=== PATIENT | male | born 1995 | race Caucasian/White ===

== ENCOUNTER 2022-03-21 17:51 | Emergency (ER) | payer SELFPAY ==
[2022-03-21 18:02] VITALS: BP 141/87; PULSE 102; RESP 16; TEMP 37.2; O2SAT 99
--- NOTE | 2022-03-21 18:07 | XRR_ITS ---
PROCEDURE INFORMATION: Exam: XR Left Ankle Exam date and time: 03/21/2022 6:13 PM Age: 26 years old Clinical indication: Pain; Ankle; Left; Additional info: Injury TECHNIQUE: Imaging protocol: Radiologic exam of the Left ankle. Views: 3 or more views. COMPARISON: No relevant prior studies available. FINDINGS: Bones/joints: The alignment of the joints is anatomic and the ankle mortise is maintained. There is no evidence of acute fracture. Soft tissues: There is soft tissue swelling adjacent to the lateral malleolus. No radiopaque foreign body is seen. XR/XR ankle LT min 3V* [id number] IMPRESSION: 1. Left ankle soft tissue swelling. 2. No acute fracture or dislocation.
[2022-03-21 18:22] VITALS: BP 141/87; PULSE 100; RESP 16; O2SAT 98
--- NOTE | 2022-03-21 18:24 | W.ED.EXTPRO ---
HPI - Extremity Problem General: Chief complaint: Extremity Injury, Lower Stated complaint: left ankle pain Time Seen by Provider: 03/21/22 18:22 History of Present Illness: 26-year-old male patient reports that he jumped into the pool and when he landed and touch bottom his ankle twisted. Since then patient noticed swelling and tenderness to the lateral part of the ankle. Pulses and sensation are intact. No obvious deformity. Associated symptoms: Deny chest pain or rash Review of Systems General: Reports: 10 or more systems reviewed and unremarkable except in HPI and below Card: Denies: chest pain Resp: Denies: dyspnea Musc: Reports: extremity pain and extremity swelling Skin/Breast: Denies: rash Physical Exam Const: COMMON NORMALS: alert HENMT: COMMON NORMALS: atraumatic HEAD & SCALP: atraumatic Neck/C-Spine: COMMON NORMALS: full ROM Resp: COMMON NORMALS: normal respiratory effort Cardio: COMMON NORMALS: regular rate RATE: regular rate Extremity: LEFT LOWER EXTREMITY: Yes ankle joint (Lateral ankle swelling, normal range of motion, distal cap refill) Left ankle: Yes inspection, Yes palpation, Yes ROM and Yes neurovascular exam Neuro: SENSORIUM/ORIENTATION: Yes alert Course Vital Signs: Vital signs: Vital Signs Temperature 99.0 F 03/21/22 18:02 Pulse Rate 100 03/21/22 18:22 Respiratory Rate 16 03/21/22 18:22 Blood Pressure 141/87 03/21/22 18:22 Pulse Oximetry 98 03/21/22 18:22 MDM - Extremity (Nontraumatic) Medical Decision Making Patient comes in today with complaints of injury to the left ankle. On exam patient has tenderness to the lateral left ankle with some obvious swelling. Pulses are intact. Prompt capillary refill is noted. Normal sensation. Differential diagnosis includes sprain, fracture, dislocation. X-rays noted no fracture or dislocation. Reviewed exam with patient with recommendations for treatment for sprain. Patient was placed in elastic bandage and put nonweightbearing with crutches. Patient was recommended to increase activity as tolerated. Patient was recommended to follow-up with primary care for persistent symptoms and repeat x-ray as swelling comes down if pain persists. Discharge Plan Discharge Patient Disposition: Home Clinical Impression: Ankle sprain Qualifiers: Encounter type: initial encounter Involved ligament of ankle: unspecified ligament Laterality: left Qualified Code(s): S93.402A - Sprain of unspecified ligament of left ankle, initial encounter Condition: Stable Discharge Orders: Discharge ED (Routine); Ordered 03/21/22 Ordered By: Gio Mak Discharge Diet: Usual diet Discharge Activity: Increase activity as tolerated Patient Instructions: Ankle Sprain (ED) Activity Restrictions/Additional Instructions: Activity as tolerated. Use ice and elevate to help with swelling. Use crutches until he can bear weight comfortably. Use an elastic bandage to help with swelling and comfort. Use acetaminophen and ibuprofen for pain. Follow-up with primary care for repeat evaluation if needed. Return to ER for new concerns. Stand Alone Forms: Work/School Release Coding Level of Care Code ED Leather Goods Maker for Martha Fwd Exam Detailed
[2022-03-21] MEDS: acetaminophen 500 mg Tablet 1000 MG PO (18:29)
== END 2022-03-21 18:36 | disposition home or self-care (01) ==
PROVIDERS: Emergency Provider Nurse Practitioner Family
DX: M25.572 Pain in left ankle and joints of left foot (principal); S93.402A Sprain of unspecified ligament of left ankle, initial encounter; X58.XXXA Exposure to other specified factors, initial encounter
CPT/HCPCS: 73610; 99283; E0114

== ENCOUNTER 2022-09-14 01:51 | Emergency (ER) | payer OTHER, SELFPAY ==
--- NOTE | 2022-09-14 01:53 | XRR_ITS ---
PROCEDURE INFORMATION: Exam: XR Left Shoulder Exam date and time: 09/14/2022 2:02 AM Age: 27 years old Clinical indication: Injury or trauma; Fall; Blunt trauma (contusions or hematomas); Left; Patient HX: Patient is in a sling. States he dislocated shoulder, passed out and it popped back in place. TECHNIQUE: Imaging protocol: Radiologic exam of the Left shoulder. Views: 2 or more views. COMPARISON: No relevant prior studies available. FINDINGS: Bones/joints: Normal. No fracture or dislocation noted. Soft tissues: Normal. XR/XR shoulder LT min 2V* [id number] IMPRESSION: No acute findings.
[2022-09-14 01:55] VITALS: BP 150/88; PULSE 80; RESP 18; TEMP 37.1; O2SAT 97; BMI 27.3
--- NOTE | 2022-09-14 02:35 | ED_ITS ---
HPI - Extremity Problem General: Chief complaint: Extremity Injury, Upper Stated complaint: left should dislocation Time Seen by Provider: 09/14/22 02:30 Source: patient and EMS Mode of arrival: EMS Limitations: no limitations History of Present Illness: 27-year-old male has had a history of multiple shoulder dislocations he states he is disquiet his left shoulder 9 times states he dislocated tonight called EMS in route here it spontaneously relocated he denies any pain currently he is able to move his arm denies any other injuries Associated symptoms: Deny chest pain, fever(s) or rash Review of Systems Const: Denies: fever(s), chills, body aches or change in appetite Eyes: Denies: blurry vision or eye discomfort ENMT: Denies: throat pain or dental pain Card: Denies: chest pain Resp: Denies: dyspnea GI: Denies: abdominal pain, nausea, vomiting or diarrhea : Denies: dysuria Musc: Reports: extremity pain Skin/Breast: Denies: rash Neuro: Denies: headache(s) Psych: Denies: depression Nikolas/Lymph: Denies: easy bruising All/Imm: Denies: urticaria PFSH ED PFSH: Medical History (Updated 09/14/22 @ 02:42 by Jo Loaiza MD) No pertinent past medical history Social History (Updated 09/14/22 @ 02:42 by Jo Loaiza MD) Substance/Drug Use: unknown Physical Exam Const: COMMON NORMALS: no acute distress and patient oriented x3 HENMT: COMMON NORMALS: normocephalic HEAD & SCALP: normocephalic Eye: COMMON NORMALS: conjunctivae normal CONJUNCTIVA: Yes conjunctivae normal Neck/C-Spine: COMMON NORMALS: supple Chest: COMMONS NORMALS: normal inspection of the chest Resp: COMMON NORMALS: normal respiratory effort Cardio: COMMON NORMALS: regular rate RATE: regular rate GI: INSPECTION: Yes normal to inspection Extremity: OTHER: Slight tenderness over left shoulder distal pulses intact no signs of dislocation at this time Neuro: COMMON NORMALS: patient oriented x3 Psych: COMMON NORMALS: mental status grossly normal Skin: COMMON NORMALS: no rashes or lesions noted GENERAL SKIN EXAM: no rashes or lesions noted Course Vital Signs: Vital signs: Vital Signs Temperature 98.7 F 09/14/22 01:55 Pulse Rate 80 09/14/22 01:55 Respiratory Rate 18 09/14/22 01:55 Blood Pressure 150/88 09/14/22 01:55 Pulse Oximetry 97 09/14/22 01:55 MDM - Extremity (Nontraumatic) Medical Decision Making Patient presents for shoulder dislocation that been relocated while he was in transport exam here is benign he is stable he is to follow-up with orthopedics Discharge Plan Discharge Patient Disposition: Home Clinical Impression: Dislocation of shoulder region Qualifiers: Encounter type: initial encounter Laterality: left Qualified Code(s): S43.005A - Unspecified dislocation of left shoulder joint, initial encounter Condition: Stable Discharge Orders: Discharge ED (Routine); Ordered 09/14/22 Ordered By: Jo Loaiza Referrals: Russell Pino MD [Physician] - 1-3 days Discharge Diet: Advance as tolerated Discharge Activity: Resume usual activity Patient Instructions: Shoulder Dislocation (ED) Coding Level of Care Code ED Superintendent Commissary for Martha Hodges
--- NOTE | 2022-09-16 11:49 | DCPLANNER ---
Addendum entered by Kimberli Summers 09/18/22 11:41: armored transport service manager received the following message from the ortho clinic regarding followup appointment: tried to call number in chart a couple times. Call drops/ no vm - will mail letter to contact our clinic to schedule with Dr. Pino armored transport service manager called phone number [phone] number is no longer in service armored transport service manager called phone number [phone], left a voicemail for patient to call ortho clinic to schedule a follow up appointment. Original Note: armored transport service manager had message to schedule a follow up appointment for patient with ortho. armored transport service manager sent patients information to the front office staff at ortho. Patients information will be printed and reviewed. Clinic will call patient with appointment information.
== END 2022-09-14 03:12 | disposition home or self-care (01) ==
PROVIDERS: Emergency Provider Emergency Medicine
DX: S43.005A Unspecified dislocation of left shoulder joint, initial encounter (principal); X58.XXXA Exposure to other specified factors, initial encounter
CPT/HCPCS: 73030; 99283

== ENCOUNTER 2022-11-04 11:43 | Emergency (ER) | payer SELFPAY ==
[2022-11-04 12:02] VITALS: BP 149/91; PULSE 100; RESP 16; TEMP 36.9; O2SAT 97
--- NOTE | 2022-11-04 12:19 | ED_ITS ---
HPI - Head Injury General: Chief complaint: Wound/Laceration Stated complaint: head lac Time Seen by Provider: 11/04/22 12:06 Source: patient Mode of arrival: ambulatory Limitations: no limitations History of Present Illness: Patient is a 27-year-old male who presents to ED today for evaluation of a scalp/facial laceration that he sustained just prior to arrival after some type of rafal like equipment struck him in the forehead. Tetanus is up-to-date. Bleeding is controlled. He is not on anticoagulation. He states he had a headache immediately afterwards but this has vastly improved. He has no other injuries or complaints at this time. Complaint: head injury Onset (ago): hour(s) Place: work Loss of Consciousness: no Location of injury: frontal Severity: mild Radiation: none Other Injuries: none Associated symptoms: Reports no associated symptoms; Deny confusion or neck pain Review of Systems Eyes: Denies: change in vision, blurry vision, photophobia, floaters or seeing flashes Musc: Denies: neck pain Neuro: Denies: headache(s), numbness in extremities, weakness in extremities, sensory changes, lack of coordination, difficulty walking, dizziness, confusion or difficulty communicating thoughts [facility] ED PFSH: Medical History No pertinent past medical history Physical Exam Const: COMMON NORMALS: no acute distress, average body habitus, patient oriented x3, no limitations, healthy appearing, alert and well nourished GENE RAL APPEARANCE: cooperative ORIENTATION/CONSCIOUSNESS: Yes awake, Yes oriented to person, Yes oriented to place and Yes oriented to time HENMT: COMMON NORMALS: normocephalic and Normal external nose present HEAD & SCALP: normal to inspection and normocephalic HEAD IMAGES: 1. superficial lacerations/abrasions present; bleeding controlled 2. FACE & SINUS: normal facial exam NOSE: Normal external nose present Eye: GENERAL EYE: appearance normal, both eyes and all related structures Neck/C-Spine: COMMON NORMALS: full ROM CERVICAL SPINE: No Cervical spine tenderness Neuro: KAREN COMA SCALE: document GCS findings [place] coma scale eye opening: Spontaneous Karen coma scale verbal response: Orientated [place] coma scale motor response: Obey commands Karen coma scale total score: 15 COMMON NORMALS: patient oriented x3, CN's II-XII intact bilaterally, moves all extremities, no focal motor deficits, no sensory deficits noted and gait normal SENSORIUM/ORIENTATION: Yes alert, Yes oriented to person, Yes oriented to place and Yes oriented to time Skin: NARRATIVE SKIN EXAM: forehead abrasions/lacerations Procedures Laceration Laceration 1: Site: face Size (cm): 2.0 Description: linear Depth: simple, single layer Pre-repair: wound explored and irrigated extensively Skin layer closed with: other (skin adhesive/glue) Course Vital Signs: Vital signs: Vital Signs Temperature 98.4 F 11/04/22 12:02 Pulse Rate 100 11/04/22 12:02 Respiratory Rate 16 11/04/22 12:02 Blood Pressure 149/91 11/04/22 12:02 Pulse Oximetry 97 11/04/22 12:02 Oxygen Delivery Me thod 11/04/22 12:02 MDM - Head Injury Medcial Decision Making Wounds were copiously irrigated. Patient requested that we closed wounds with skin adhesive/glue. No need for antibiotic therapy at this time. Tetanus up-to-date. Aced on history and physical exam there is no need for emergent CT imaging. Return ED precautions given. Wound care/action precautions discussed. Discharge Plan Discharge Patient Disposition: Home Clinical Impression: Forehead laceration Qualifiers: Encounter type: initial encounter Qualified Code(s): S01.81XA - Laceration without foreign body of other part of head, initial encounter Condition: Stable Discharge Orders: Discharge ED (Routine); Ordered 11/04/22 Ordered By: Cecelia Duarte Activity Restrictions/Additional Instructions: Keep wound/laceration clean with warm soap and water twice daily. Monitor for signs of infection such as redness, swelling, increased pain, or drainage. Please seek medical re-evaluation if these occur. If your wound was closed with Steri-Strips or glue/adhesive these will fall off within the next week or so. Coding Level of Care Code ED Billet Sawyer for Martha Hodges
== END 2022-11-04 13:25 | disposition home or self-care (01) ==
PROVIDERS: Emergency Provider Physician Assistant
DX: S01.81XA Laceration without foreign body of other part of head, initial encounter (principal); W22.8XXA Striking against or struck by other objects, initial encounter
CPT/HCPCS: 12011; 99282

== ENCOUNTER 2023-09-21 03:48 | Observation (INO) | payer SELFPAY ==
[2023-09-21 03:52] VITALS: BP 153/86; PULSE 114; RESP 18; TEMP 36.6; O2SAT 99; BMI 27.2
[2023-09-21 04:49] LABS: Basophils # 0.1 10^3/uL (0.0-0.1); Basophils % 0.4 %; Eosinophils # 0.3 10^3/uL (0.0-0.8); Eosinophils % 2.3 %; Hematocrit 48.8 % (37-53); Lymphocytes # 3.7 10^3/uL (0.8-4.8); Mean Corpuscular HGB Conc 31.6 g/dL (30-55); Mean Corpuscular Hemoglobin 29.2 pg (27-33); Mean Corpuscular Volume 92.4 fl (82-101); Mean Platelet Volume 8.9 fL (7.4-10.4); Monocytes # 1.1 10^3/uL (0.2-0.9); Monocytes % 7.6 %; Neutrophils # 8.92 10^3/uL (1.8-7.7); Neutrophils % 63.2 %; Nucleated Red Blood Cells % 0 %; Platelet Count 305 10^3/cmm (157-399); Red Blood Count 5.28 10^6/uL (3.85-5.65); White Blood Count 14.11 10^3/uL (3.29-11.43)
--- NOTE | 2023-09-21 05:09 | W.ED.PSYCHS ---
HPI - Psych General: Chief Complaint: Psychiatric Symptoms Stated Complaint: si Time Seen by Provider: 09/21/23 04:28 History of Present Illness: 28-year-old male who says he has never been admitted to the hospital for psychiatric reasons. He presents this morning via law enforcement. He had first walked in to triage on his own. He had called our neuropsychiatric facility at the hospital multiple times asking to be admitted last night. On entry to the emergency department, he admitted that he wanted to be seen for his mental health. He initially denied suicidal ideation, but when asked to give up his belongings, he told my nursing staff that he had a knife in his backpack, and threatened to use it if he felt the need. He then walked out of the ER. He was picked up by law enforcement down the road and brought back, as he had at that point made homicidal statement. He denies medical problems. He denies recent fever, vomiting or diarrhea. He notes substances on board to be marijuana, and potentially add Valium he took 24 hours ago. Review of Systems Const: Denies: fever(s), chills or body aches Eyes: Denies: change in vision Card: Denies: chest pain or palpitations Resp: Denies: dyspnea, productive cough, non-productive cough or wheezing GI: Denies: abdominal pain, nausea, vomiting, diarrhea or hematochezia Skin/Breast: Denies: rash Neuro: Denies: headache(s), weakness in extremities, dizziness or confusion [facility] ED PFSH: Medical History No pertinent past medical history Social History Substance/Drug Use: unknown Physical Exam Const: GENERAL APPEARANCE: cooperative; not ill appearing and not frail appearing ORIENTATION/CONSCIOUSNESS: Yes awake, Yes oriented to person, Yes oriented to place and Yes oriented to time OTHER: Agitated HENMT: COMMON NORMALS: normocephalic, atraumatic and Normal external nose present HEAD & SCALP: normocephalic and atraumatic FACE & SINUS: normal facial exam and face symmetric NOSE: Normal external nose present Eye: COMMON NORMALS: Equal, round and reactive pupils present and EOMs intact bilaterally PUPIL: Yes Equal, round and reactive pupils present Neck/C-Spine: GENERAL: Yes trachea midline Chest: CHEST: Yes Symmetrical chest wall rise Resp: COMMON NORMALS: normal respiratory effort, No retractions, No use of accessory muscles and clear to auscultation bilaterally AUSCULTATION: clear to auscultation bilaterally Cardio: COMMON NORMALS: regular rate and regular rhythm RATE: regular rate RHYTHM: regular rhythm GI: COMMON NORMALS: Normal to inspection, nondistended, normoactive bowel sounds present Extremity: COMMON NORMALS: no pedal edema Neuro: ÁNGEL COMA SCALE: document GCS findings Ángel coma scale eye opening: Spontaneous Ángel coma scale verbal response: Orientated [place] coma scale motor response: Obey commands Ángel coma scale total score: 15 SENSORIUM/ORIENTATION: Yes oriented to person, Yes oriented to place and Yes oriented to time SENSORY EXAM: Yes extremities (intact) Psych: COMMON NORMALS: speech normal APPEARANCE: Yes grossly normal ATTITUDE: Yes Guarded attititude/behavior present and Yes agitated SPEECH: Yes normal speech Skin: COMMON NORMALS: no rashes or lesions noted GENERAL SKIN EXAM: no rashes or lesions noted Course Vital Signs: Vital signs: Vital Signs Temperature 97.9 F 09/21/23 03:52 Pulse Rate 114 H 09/21/23 03:52 Respiratory Rate 16 09/21/23 05:34 Blood Pressure 153/86 09/21/23 03:52 Pulse Oximetry 99 09/21/23 03:52 Oxygen Delivery Me thod Room Air 09/21/23 03:52 [facility] - Psych Medical Decision Making He has not been violent. He arrived via law enforcement, was dressed out per protocol, and his belongings are locked away. Medically he appears stable. He is quite agitated but is handling his agitation. Because of the previous happenings this morning, he will require psychiatric evaluation. He is placed under 96-hour hold. Laboratory is pending. Spoke with psychiatry. Will proceed with admission. Lab Data 09/21/23 04:41 09/21/23 04:41 Laboratory Results WBC 14.11 10^3/uL (3.29-11.43) H 09/21/23 04:41 RBC 5.28 10^6/uL (3.85-5.65) 09/21/23 04:41 Hgb 15.40 g/dL (11.27-16.99) 09/21/23 04:41 Hct 48.8 % (37-53) 09/21/23 04:41 MCV 92.4 fl (82-101) 09/21/23 04:41 MCH 29.2 pg (27-33) 09/21/23 04:41 MCHC 31.6 g/dL (30-55) 09/21/23 04:41 RDW 14.0 % (12.1-15.1) 09/21/23 04:41 Plt Count 305 10^3/cmm (157-399) 09/21/23 04:41 MPV 8.9 fL (7.4-10.4) 09/21/23 04:41 Neut % (Auto) 63.2 % 09/21/23 04:41 Lymph % (Auto) 26.0 % 09/21/23 04:41 Gibson % (Auto) 7.6 % 09/21/23 04:41 Eos % (Auto) 2.3 % 09/21/23 04:41 Baso % (Auto) 0.4 % 09/21/23 04:41 Neut # (Auto) 8.92 10^3/uL (1.8-7.7) H 09/21/23 04:41 Lymph # (Auto) 3.7 10^3/uL (0.8-4.8) 09/21/23 04:41 Gibson # (Auto) 1.1 10^3/uL (0.2-0.9) H 09/21/23 04:41 Eos # (Auto) 0.3 10^3/uL (0.0-0.8) 09/21/23 04:41 Baso # (Auto) 0.1 10^3/uL (0.0-0.1) 09/21/23 04:41 Nucleated RBC % (auto) 0 % 09/21/23 04:41 Nucleated RBCs # 0.0 /100WBC 09/21/23 04:41 Sodium 141 mmol/L (136-145) 09/21/23 04:41 Potassium 3.7 mmol/L (3.5-5.1) 09/21/23 04:41 Chloride 105 mmol/L (98-107) 09/21/23 04:41 Carbon Dioxide 27 mmol/L (22-29) 09/21/23 04:41 Anion Gap 12.7 (5-19) 09/21/23 04:41 BUN 11 mg/dL (6-20) 09/21/23 04:41 Creatinine 0.7 mg/dL (0.7-1.2) 09/21/23 04:41 GFR Calculation 132.4 mL/min (90-130) H 09/21/23 04:41 Glucose 104 mg/dL (65-115) 09/21/23 04:41 Calculated Osmolality 292 mOsm/kg (285-295) 09/21/23 04:41 Calcium 9.3 mg/dL (8.5-10.5) 09/21/23 04:41 Total Bilirubin 0.2 mg/dL (0.15-1.2) 09/21/23 04:41 AST 32 U/L (0-40) 09/21/23 04:41 ALT 18 U/L (0-41) 09/21/23 04:41 Alkaline Phosphatase 82 U/L (40-130) 09/21/23 04:41 Total Protein 6.5 g/dL (6.6-8.7) L 09/21/23 04:41 Albumin 4.1 g/dL (3.5-5.2) 09/21/23 04:41 Globulin 2.4 g/dL (1.3-4.6) 09/21/23 04:41 Salicylates < 0.3 mg/dL (3-10) L 09/21/23 04:41 Acetaminophen < 5.0 ug/mL (10-30) L 09/21/23 04:41 Ethyl Alcohol < 10 mg/dL (0-10) 09/21/23 04:41 No radiology studies performed this visit Discharge Plan Discharge Patient Disposition: Admitted As Inpatient Clinical Impression: Homicidal ideation Condition: Stable Coding Level of Care Code ED Excellence Leader for Martha Hodges
[2023-09-21 05:12] LABS: Alanine Aminotransferase 18 U/L (0-41); Albumin Level 4.1 g/dL (3.5-5.2); Alkaline Phosphatase 82 U/L (40-130); Anion Gap 12.7 (5-19); Aspartate Amino Transferase 32 U/L (0-40); Blood Urea Nitrogen 11 mg/dL (6-20); Calcium 9.3 mg/dL (8.5-10.5); Carbon Dioxide 27 mmol/L (22-29); Chloride 105 mmol/L (98-107); Globulin 2.4 g/dL (1.3-4.6); Glomerular Filtration Rate 132.4 mL/min (90-130); Glucose 104 mg/dL (65-115); Osmolality Calculated 292 mOsm/kg (285-295); Potassium 3.7 mmol/L (3.5-5.1); Sodium 141 mmol/L (136-145); Total Bilirubin 0.2 mg/dL (0.15-1.2); Total Protein 6.5 g/dL (6.6-8.7)
[2023-09-21 05:18] LABS: Acetaminophen < 5.0 ug/mL (10-30); Alcohol Level < 10 mg/dL (0-10); Salicylate < 0.3 mg/dL (3-10)
[2023-09-21 05:34] VITALS: RESP 16
--- NOTE | 2023-09-21 05:52 | PC.NURSE ---
Patient Behavior At approximately 0200 this patient called the unit and spoke with EDISON asking several questions about what would happen to his belongings if he was admitted to the unit. She explained and he kept asking the same questions and also asking what he needed to bring. She tried to answer his questions several times but he did not seem to be grasping her answers. This designer writer then got on the phone with him and he stated he was homeless, walking around in [facility] because it is cold outside. He stated that he wanted to come to our unit directly and not go thru the ED. The process was explained to him several times and he stated his weapons officer naval activity and the crisis center told him he did not have to go thru the ED. He began to become agitated and stated this designer writer was lying to him and he just wanted answers. He stated he was not SI so he did not have to go to the ED. Offered that the patient call an ambulance or come into the ED or call the police department to inquire about warming shelters then he hung up. Called back shortly and nurse schneider re-iterated the same information previously given by staff. He became verbally abusive and was told that was unacceptable behavior and he hung up. Nurse schneider called him back with snf information and he stated to him that he was on the other line reporting the nurse schneider to the hospital. After being on hold with security the patient then got back on the line and was kind to the nurse schneider and said thank you.
--- NOTE | 2023-09-21 06:44 | P.NPUHP_ITS ---
Providers/Chief Complaint 2 Admitting Physician: Keaton Campos MD Chief Complaint: Psy HPI NPU History of Present Illness Uziel Pina is a 28 year old male who presented to the emergency department with the following report: Chief Complaint: Psychiatric Symptoms Stated Complaint: si Time Seen by Provider: 09/21/23 04:28 History of Present Illness: 28-year-old male who says he has never been admitted to the hospital for psychiatric reasons. He presents this morning via law enforcement. He had first walked in to triage on his own. He had called our neuropsychiatric facility at the hospital multiple times asking to be admitted last night. On entry to the emergency department, he admitted that he wanted to be seen for his mental health. He initially denied suicidal ideation, but when asked to give up his belongings, he told my nursing staff that he had a knife in his backpack, and threatened to use it if he felt the need. He then walked out of the ER. He was picked up by law enforcement down the road and brought back, as he had at that point made homicidal statement. He denies medical problems. He denies recent fever, vomiting or diarrhea. He notes substances on board to be marijuana, and potentially add Valium he took 24 hours ago. He was admitted to the neuropsychiatric unit for definitive treatment of those issues. He presented this morning very upset that he was admitted and reporting that things obviously got confused. He reports that he was sent here by his botanical technical officer to make sure that he got some assistance with housing and food. We had a lengthy discussion about what the neuropsychiatric unit does and what it does not do. We discussed that we do help people find some residential settings based on the situation but we are not a housing program. We endorse working with people to get connected to resources for food assistance but we are not a pantry per se. He denied any longstanding mental health issues. He reports he has felt a little down because of the circumstances but he knows that he will be fine. He reports that he has had some issues with addiction but denied it being significant at this time though he had not had a UDS in the emergency department or on the unit during his brief time here. We discussed the different resources in the community including the [facility] He was adamant that he was not feeling any suicidal or any homicidal feelings and has never been suicidal in his life. He was able to have a reasonable discussion and endorsed that he was not interested in any medication or treatment and now with a true sense of how the unit works he does not want to stay. We discussed the risks, benefits and alternatives to this inpatient hospitalization and he understood and agreed to proceed as is documented in this note. Meds NPU Home Medications Medication Instructions Recorded Confirmed Last Taken Type Unable to Assess 09/21/23 09/21/23 Unknown History Allergies Allergy/AdvReac Type Severity Reaction Status Date / Time No Known Allergies Allergy Verified 03/21/22 18:04 PFSH NPU 2 PFSH: Medical History No pertinent past medical history Social History Substance/Drug Use: unknown Mental Status Exam 2 MSE Comments: This is a well-nourished well-developed white male in hospital scrubs with adequate grooming and appropriate eye contact. No abnormal movements except for mild psychomotor agitation. Mostly cooperative with exam in mild distress. Speech was increased rate normal volume. Mood described his frustrated, affect congruent. Thought process organized. Thought content: Patient denied suicidal or homicidal ideation, there were no delusions reported or noted, he denied any auditory or visual hallucinations. Attention and concentration were intact and memory appeared reliable but none were formally tested. He is alert and oriented x 3. Insight was fair judgment and impulse control were limited. Vitals/I&O/Wt Last Vital Signs Temp 97.9 F 09/21/23 03:52 Pulse 114 H 09/21/23 03:52 Resp 16 09/21/23 05:34 BP 153/86 09/21/23 03:52 Pulse Ox 99 09/21/23 03:52 O2 Del Method Room Air 09/21/23 03:52 Weight last 48 hrs Weight 86.183 kg Data NPU 09/21/23 04:41 09/21/23 04:41 A&P Assessment and plan (1) Adjustment disorder with mixed disturbance of emotions and conduct: (2) Cannabis use disorder: (3) Impulse control disorder, unspecified: Plan This is a 28-year-old white male with a history of addiction and legal issues but denying significant history of mental health challenges who reports that he came to the hospital at the behest of his probation/botanical technical officer to get housing and food assistance reporting he is not interested in treatment. 1. Patient not interested in psychiatric care and not understanding the resource of the hospital. 2. Evaluated for safety related to aggressive statements made in the emergency department. 3. No signs of credible lethality noted. 4. Will allow for discharge. Attestations NPU 2 Medical Necessity Statement*: Inpatient psychiatric hospitalization could be of assistance but are not medically necessary at this time. Coding Level of Care Code Acute Code for [facility] Fwd Diagnoses Adjustment disorder with mixed disturbance of emotions and conduct F43.25 Cannabis use disorder F12.90 Impulse control disorder, unspecified F63.9
[2023-09-21 06:54] VITALS: RESP 16
--- NOTE | 2023-09-21 07:35 | PC.PHAR ---
pt just shrugged his shoulders when asked if he takes medications-no meds pull up on ext med history
--- NOTE | 2023-09-21 08:18 | P.NPUDS_ITS ---
Reason for Visit Reason for Visit: Psy Brief History: History of Present Illness Uziel Pina is a 28 year old male who presented to the emergency department with the following report: Chief Complaint: Psychiatric Symptoms Stated Complaint: si Time Seen by Provider: 09/21/23 04:28 History of Present Illness: 28-year-old male who says he has never b een admitted to the hospital for psychiatric reasons. He presents this morning via law enforcement. He had first walked in to triage on his own. He had called our neuropsychiatric facility at the hospital multiple times asking to be admitted last night. On entry to the emergency department, he admitted that he wanted to be seen for his mental health. He initially denied suicidal ideation, but when asked to give up his belongings, he told my nursing staff that he had a knife in his backpack, and threatened to use it if he felt the need. He then walked out of the ER. He was picked up by law enforcement down the road and brought back, as he had at that point made homicidal statement. He denies medical problems. He denies recent fever, vomiting or diarrhea. He notes substances on board to be marijuana, and potentially add Valium he took 24 hours ago. He was admitted to the neuropsychiatric unit for definitive treatment of those issues. He presented this morning very upset that he was admitted and reporting that things obviously got confused. He reports that he was sent here by his court collections officer to make sure that he got some assistance with housing and food. We had a lengthy discussion about what the neuropsychiatric unit does and what it does not do. We discussed that we do help people find some residential settings based on the situation but we are not a housing program. We endorse working with people to get connected to resources for food assistance but we are not a pantry per se. He denied any longstanding mental health issues. He reports he has felt a little down because of the circumstances but he knows that he will be fine. He reports that he has had some issues with addiction but denied it being significant at this time though he had not had a UDS in the emergency department or on the unit during his brief time here. We discussed the different resources in the community including the [facility]. He was adamant that he was not feeling any suicidal or any homicidal feelings and has never been suicidal in his life. He was able to have a reasonable discussion and endorsed that he was not interested in any medication or treatment and now with a true sense of how the unit works he does not want to stay. We discussed the risks, benefits and alternatives to this inpatient hospitalization and he understood and agreed to proceed as is documented in this note. Hospital Course Hospital Course He presented to the neuropsychiatric unit secondary to his parole/learning officer recommending he come here for assistance with resources. Discussion about the inpatient unit processes to place and resources like the crisis stabilization unit were discussed. Patient had no interest in inpatient services and was not desirous to be here now that he understands the purpose of the unit. He was able to discuss the situation calmly and it was decided that it was best to allow him to discharge. He was able to contract for safety outside of the hospital prior to discharge. During the hospitalization, the patient had routine laboratory studies which were within normal limits except for a few outliers.? Additionally, there was a general medical evaluation which was also within normal limits and revealed no new acute processes.? At the time of discharge, he denied psychosis or lethality.? Mood and anxiety were well managed.? The patient endorsed a plan to avoid all drugs of abuse and took the referral for [facility]. The patient was evaluated and deemed to be absent credible lethality and was not interested in inpatient hospitalization, and so was discharged. Mental Status Exam MSE Comments: This is a well-nourished well-developed white male in hospital scrubs with adequate grooming and appropriate eye contact. No abnormal movements except for mild psychomotor agitation. Mostly cooperative with exam in mild distress. Speech was increased rate normal volume. Mood described his frustrated, affect congruent. Thought process organized. Thought content: Patient denied suicidal or homicidal ideation, there were no delusions reported or noted, he denied any auditory or visual hallucinations. Attention and concentration were intact and memory appeared reliable but none were formally tested. He is alert and oriented x 3. Insight was fair judgment and impulse control were limited. Discharge Data Studies Completed and Pending: Pending at discharge Category Date Time Status Drug Screen, Urin e Stat Lab 09/21/23 04:43 Uncollected Urinalysis Stat Lab 09/21/23 04:43 Uncollected Laboratory Results WBC 14.11 10^3/uL (3. 29-11.43) H 09/21/23 04:41 RBC 5.28 10^6/uL (3.8 5-5.65) 09/21/23 04:41 Hgb 15.40 g/dL (11.27 -16.99) 09/21/23 04:41 Hct 48.8 % (37-53) 09/21/23 04:41 MCV 92.4 fl (82-101) 09/21/23 04:41 MCH 29.2 pg (27-33) 09/21/23 04:41 MCHC 31.6 g/dL (30-55) 09/21/23 04:41 RDW 14.0 % (12.1-15.1 ) 09/21/23 04:41 Plt Count 305 10^3/cmm (157 -399) 09/21/23 04:41 MPV 8.9 fL (7.4-10.4) 09/21/23 04:41 Neut % (Auto) 63.2 % 09/21/23 04:41 Lymph % (Auto) 26.0 % 09/21/23 04:41 [place] % (Auto) 7.6 % 09/21/23 04:41 Eos % (Auto) 2.3 % 09/21/23 04:41 Baso % (Auto) 0.4 % 09/21/23 04:41 Neut # (Auto) 8.92 10^3/uL (1.8 -7.7) H 09/21/23 04:41 Lymph # (Auto) 3.7 10^3/uL (0.8- 4.8) 09/21/23 04:41 [place] # (Auto) 1.1 10^3/uL (0.2- 0.9) H 09/21/23 04:41 Eos # (Auto) 0.3 10^3/uL (0.0- 0.8) 09/21/23 04:41 Baso # (Auto) 0.1 10^3/uL (0.0- 0.1) 09/21/23 04:41 Nucleated RBC % (a uto) 0 % 09/21/23 04:41 Nucleated RBCs # 0.0 /100WBC 09/21/23 04:41 Sodium 141 mmol/L (136-1 45) 09/21/23 04:41 Potassium 3.7 mmol/L (3.5-5 .1) 09/21/23 04:41 Chloride 105 mmol/L (98-10 7) 09/21/23 04:41 Carbon Dioxide 27 mmol/L (22-29) 09/21/23 04:41 Anion Gap 12.7 (5-19) 09/21/23 04:41 BUN 11 mg/dL (6-20) 09/21/23 04:41 Creatinine 0.7 mg/dL (0.7-1. 2) 09/21/23 04:41 GFR Calculation 132.4 mL/min (90- 130) H 09/21/23 04:41 Glucose 104 mg/dL (65-115 ) 09/21/23 04:41 Calculated Osmolal ity 292 mOsm/kg (285- 295) 09/21/23 04:41 Calcium 9.3 mg/dL (8.5-10 .5) 09/21/23 04:41 Total Bilirubin 0.2 mg/dL (0.15-1 .2) 09/21/23 04:41 AST 32 U/L (0-40) 09/21/23 04:41 ALT 18 U/L (0-41) 09/21/23 04:41 Alkaline Phosphata se 82 U/L (40-130) 09/21/23 04:41 Total Protein 6.5 g/dL (6.6-8.7 ) L 09/21/23 04:41 Albumin 4.1 g/dL (3.5-5.2 ) 09/21/23 04:41 Globulin 2.4 g/dL (1.3-4.6 ) 09/21/23 04:41 Salicylates < 0.3 mg/dL (3-10 ) L 09/21/23 04:41 Acetaminophen < 5.0 ug/mL (10-3 0) L 09/21/23 04:41 Ethyl Alcohol < 10 mg/dL (0-10) 09/21/23 04:41 Vitals: Last Vital Signs Temp 97.9 F 09/21/23 03:52 Pulse 114 H 09/21/23 03:52 Resp 16 09/21/23 06:54 BP 153/86 09/21/23 03:52 Pulse Ox 99 09/21/23 03:52 O2 Del Method Room Air 09/21/23 03:52 Discharge Plan Discharge Patient Disposition: Home Condition: Stable Prescriptions: Continued Unable to Assess Discharge Orders: Discharge Order (Routine); Ordered 09/21/23 Ordered By: Keaton Campos Discharge Diet: Regular Discharge Activity: Resume usual activity Patient Instructions: Opioid Safety Discharge Attestations NPU Time Spent in Discharge Care*: less than 30 min Specific Discharge Activities: Specific discharge activities: educating patient, discussing with nurse case manager/social workers/dc planners, documenting/other paperwork and evaluating patient/reviewing data Coding Level of Care Code Acute Code for [facility]
[2023-09-21 08:55] VITALS: RESP 16
--- NOTE | 2023-09-21 09:46 | PC.NURSE ---
Patient arrived to unit at 0743 and immediately became verbally aggressive with staff. He stated, I don't know why the fuck I'm here. I don't want to be here. I asked my [facility] youth corrections officer what to do and she said to go to the ER to get fucking food and penitentiary. So why the fuck am I here? Any time the staff attempted to offer him answers to questions he would interrupt and begin cussing and saying the [facility] doctor didn't know what he was doing and that we were keeping him trapped. Patient continued to ramble and curse nursing staff. At this time Dr. Campos approached the patient and had a conversation with him in which they decided it would be best for him to discharge. This RN took the patient his discharge forms to sign and he continued to be verbally aggressive and asking before this RN could explain anything, the fuck is this for? I just want to fucking leave! This RN explained to the patient that it was his discharge form and that it needed to be signed to acknowledge his discharge. Security was present for patient's entire time spent on the unit and after signing his forms security escorted him off the unit.
== END 2023-09-21 08:00 | disposition home or self-care (01) ==
LOC: ER 05:20 → NP 06:55
PROVIDERS: Admitting Provider Psychiatry & Neurology Psychiatry; Emergency Provider Emergency Medicine; Visit Provider Psychiatry & Neurology Psychiatry
DX: F43.25 Adjustment disorder with mixed disturbance of emotions and conduct (principal); F12.90 Cannabis use, unspecified, uncomplicated; F63.9 Impulse disorder, unspecified
CPT/HCPCS: 36415; 80053; 80307; 85025; 99285; G0378

== ENCOUNTER 2024-06-04 12:39 | Emergency (ER) | payer SELFPAY ==
[2024-06-04] VITALS (10 sets, daily range): BP systolic 145–193; BP diastolic 83–99; PULSE 64–128; RESP 18–30; TEMP 36.7; O2SAT 91–100; BMI 32.8
--- NOTE | 2024-06-04 | XRR_ITS ---
PROCEDURE INFORMATION: Exam: XR Left Shoulder Exam date and time: 06/04/2024 2:55 PM Age: 28 years old Clinical indication: Pain; Shoulder; Left; Additional info: Post reduction, TECHNIQUE: Imaging protocol: Radiologic exam of the left shoulder. Views: 2 or more views. COMPARISON: CR XR shoulder LT min 2V* [id number] 06/04/2024 1:15 PM FINDINGS: Bones/joints: The left glenohumeral joint is unremarkable in appearance on this single view analysis. Negative for fracture. Soft tissues: Normal. XR/XR shoulder LT 1V [id number] IMPRESSION: The left glenohumeral joint alignment appears to be reduced on this single view analysis. Unremarkable study.
--- NOTE | 2024-06-04 12:46 | XR_ITS ---
WS: [id number] Left shoulder, 3 views, 06/04/2024 Clinical Data: injury Comparison: Left shoulder, 09/14/2022 Findings: There is an anterior subcoracoid dislocation. The AC joint is normal. The adjacent clavicle, scapula and ribs are normal. XR/XR shoulder LT min 2V* [id number] Impression: Anterior subcoracoid left shoulder dislocation.
--- NOTE | 2024-06-04 13:59 | ED_ITS ---
Documented by User: LAUREANO Cisneros 06/04/24 15:19 HPI - Extremity Problem General: Chief complaint: Extremity Injury, Upper Stated complaint: shoulder injury Time Seen by Provider: 06/04/24 13:50 Source: patient and family Mode of arrival: ambulatory Limitations: no limitations History of Present Illness: Patient is a 28-year-old male who presents to ED today for treatment of a left shoulder dislocation. Patient states shoulder dislocated earlier this morning during play time . He does not want to elaborate on this but the significant other was giggling and made suggestions that this happened during intercourse. He states the shoulder has dislocated multiple times in the past. States he has never saw a specialist as he cannot take off work following his shoulder surgery. MD Complaint: joint pain Onset (ago): hour(s) Pain Consistency: constant Location: left and upper extremity Radiation: none Relieving factors: nothing Exacerbating factors: range of motion and palpation Associated symptoms: Reports no associated symptoms; Deny chest pain Related Data Home Medications Medication Instructions Recorded Confirmed No Known Home Medications 06/04/24 06/04/24 Allergies Allergy/AdvReac Type Severity Reaction Status Date / Time No Known Allergies Allergy Verified 06/04/24 12:45 Review of Systems Card: Denies: chest pain Resp: Denies: dyspnea Musc: Reports: joint pain (L shoulder) and limited range of motion (L shoulder); Denies: neck pain, back pain, extremity pain, extremity swelling or joint swelling [facility] ED PFSH: Medical History No pertinent past medical history Social History Substance/Drug Use: unknown Physical Exam Const: COMMON NORMALS: patient oriented x3, no limitations and alert GENERAL APPEARANCE: cooperative and in distress (due to L shoulder pain) Chest: COMMONS NORMALS: normal inspection of the chest and normal palpation of entire chest wall Resp: COMMON NORMALS: normal respiratory effort and clear to auscultation bilaterally AUSCULTATION: clear to auscultation bilaterally Cardio: COMMON NORMALS: regular rate and regular rhythm RATE: regular rate RHYTHM: regular rhythm Extremity: GENERAL: Yes normal exam except as noted LEFT UPPER EXTREMITY: Yes shoulder joint Left shoulder joint: Yes inspection (shoulder dislocation), Yes ROM (limited due to dislocation) and Yes neurovascular exam (normal) Neuro: COMMON NORMALS: patient oriented x3, moves all extremities, no focal motor deficits and no sensory deficits noted SENSORIUM/ORIENTATION: Yes alert Course Vital Signs: Vital signs: Vital Signs Temperature 98.0 F 06/04/24 12:43 Pulse Rate 128 H 06/04/24 14:51 Respiratory Rate 25 H 06/04/24 14:51 Blood Pressure 193/95 06/04/24 14:51 Pulse Oximetry 98 06/04/24 12:43 Oxygen Delivery Me thod Nasal Cannula 06/04/24 14:51 MDM - Extremity (Nontraumatic) Lab Data Radiology Impressions Shoulder X-Ray 06/04/24 12:46 Impression: Anterior subcoracoid left shoulder dislocation. All radiology interpretation(s) finalized by discharge Discharge Plan Discharge Patient Disposition: Home Clinical Impression: Anterior dislocation of left shoulder Qualifiers: Encounter type: initial encounter Qualified Code(s): S43.015A - Anterior dislocation of left humerus, initial encounter Condition: Stable Prescriptions: No Action No Known Home Medications Discharge Orders: Discharge ED (Routine); Ordered 06/04/24 Ordered By: Ravi Enriquez Discharge Diet: Usual diet Discharge Activity: Limit activity as instructed Patient Instructions: Dislocation - Shoulder, Opioid Safety, Pain Management Activity Restrictions/Additional Instructions: As you know you have 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 This has become a more frequent occurrence and needs to be evaluated by orthopedics for possible surgical correction. We have provided you a sling to wear which you should do for the next 2 weeks to help reduce stress upon your already stress ligaments in your shoulder. You may reduce or remove your shoulder from the sling and do range of motion exercises as described. Follow- up with local orthopedic surgeon with orthopedic surgeon of your choice in the next 3 to 4 weeks. Return to the emergency department anytime for any increasing pain discomfort or any other concerns. Coding Level of Care Code ED Derrick Boat Lever Operator for Maria [facility] Fwd Documented by User: Ravi Enriquez DO 06/04/24 15:13 HPI - Extremity Problem General: Chief complaint: Extremity Injury, Upper Stated complaint: shoulder injury Time Seen by Provider: 06/04/24 13:50 Related Data Home Medications Medication Instructions Recorded Confirmed No Known Home Medications 06/04/24 06/04/24 Allergies Allergy/AdvReac Type Severity Reaction Status Date / Time No Known Allergies Allergy Verified 06/04/24 12:45 PFSH ED PFSH: Medical History No pertinent past medical history Social History Substance/Drug Use: unknown Procedures Orthopedic Joint Reduction Joint #1: Time Out Performed: Yes Side: left Joint Reduction Location: shoulder Analgesia: procedural sedation Shoulder Technique Used (if applicable): traction/counter-traction Technique used: traction/counter-traction Post-reduction neuro exam: intact Post-reduction vascular: intact Post Reduction X-Ray Obtained: Yes Post Reduction X-Ray Results: reduced Splint Applied: Yes Patient Tolerated Procedure: well Additional Comments: Patient tolerated procedure well. Sedated using propofol see sedation note. No evidence of bony injury and no evidence of neurovascular compromise with intact asked a nerve function. Patient was given a sling. Procedural Sedation Indication: fracture/dislocation reduction ASA Class: I Preparation: front desk monitor applied, pulse oximeter, supplemental O2 applied, suction/airway equipment at bedside and IV secured IV Propofol dose (mg): 100 Patient Tolerated Procedure: well Complications: none Additional Comments: Patient tolerated propofol well and recovered back to baseline immediately post reduction. Course Reevaluation(s): Reevaluation #1: Patient was initially seen by LAUREANO Cisneros. Patient has a anterior dislocation of his left shoulder which is recurrent. The patient will need reduction and refuses to allow any manipulation or extensive examination of his left shoulder without sedation. He has intact sensation to his left upper extremity. He has good capillary refill and pulses. Will go ahead and proceed with procedural sedation utilizing propofol and appropriate reduction technique. The patient voices understanding and has had no issues with anesthesia in or sedation in the past. Clinical examination revealed him to be a Mallampati 2, clear lungs without wheeze or crackles, cardiovascular is regular without murmur. Time: 14:15 Reevaluation #2: Patient has recovered back to baseline and is suitable for discharge at the RNs discretion Time: 15:13 Vital Signs: Vital signs: Vital Signs Temperature 98.0 F 06/04/24 12:43 Pulse Rate 128 H 06/04/24 14:51 Respiratory Rate 25 H 06/04/24 14:51 Blood Pressure 193/95 06/04/24 14:51 Pulse Oximetry 98 06/04/24 12:43 Oxygen Delivery Me thod Nasal Cannula 06/04/24 14:51 MDM - Extremity (Nontraumatic) Medical Decision Making This patient presented to the emergency department initially seen by Cecelia Duarte and was found to have a anterior left shoulder dislocation. This is 1 of many similar dislocations this patient has sustained in the past. This 1 occurred approximately 4 hours prior to presentation to the emergency department. Patient previously been reduced without difficulty but is declining to follow-up with orthopedics due to financial considerations. Patient was examined by LAUREANO Cisneros initially and then by me once shoulder dislocation was noticed. He has a simple anterior dislocation. He has intact axillary nerve function and has intact motor and vascular status distal to his left shoulder. After informed consent the patient was sedated using procedural sedation protocol with IV propofol. Shoulder was reduced without difficulty and he was placed in a sling. He was counseled as well as his significant other was also present during his counseling regarding the need for orthopedics follow-up to consider surgical correction to reduce risk of recurrent shoulder reductions. Patient acknowledged this recommendation. Lab Data I reviewed the patient's lab results. Radiology Impressions Shoulder X-Ray 06/04/24 12:46 Impression: Anterior subcoracoid left shoulder dislocation. Discharge Plan Discharge Patient Disposition: Home Clinical Impression: Anterior dislocation of left shoulder Qualifiers: Encounter type: initial encounter Qualified Code(s): S43.015A - Anterior dislocation of left humerus, initial encounter Condition: Stable Prescriptions: No Action No Known Home Medications Discharge Orders: Discharge ED (Routine); Ordered 06/04/24 Ordered By: Ravi Enriquez Discharge Diet: Usual diet Discharge Activity: Limit activity as instructed Patient Instructions: Dislocation - Shoulder, Opioid Safety, Pain Management Activity Restrictions/Additional Instructions: As you know you have 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 This has become a more frequent occurrence and needs to be evaluated by orthopedics for possible surgical correction. We have provided you a sling to wear which you should do for the next 2 weeks to help reduce stress upon your already stress ligaments in your shoulder. You may reduce or remove your shoulder from the sling and do range of motion exercises as described. Follow- up with local orthopedic surgeon with orthopedic surgeon of your choice in the next 3 to 4 weeks. Return to the emergency department anytime for any increasing pain discomfort or any other concerns. Coding Level of Care Code ED Derrick Boat Lever Operator for Martha Hodges
--- NOTE | 2024-06-04 14:58 | PC.NURSE ---
Pt alert and oriented x 4 at this time. Pt arm sling in place. Pt resp even and unlabored at this time.
[2024-06-04] MEDS: propofol 10 mg/mL SDV 20 mL 53.3 MG IVP (15:31)
--- NOTE | 2024-06-04 15:42 | PC.NURSE ---
Pt removed blood pressure cuff without informing the nurse.
--- NOTE | 2024-06-07 08:38 | DCPLANNER ---
messaged ortho for er f/u
== END 2024-06-04 15:42 | disposition home or self-care (01) ==
PROVIDERS: Emergency Provider Physician Assistant
DX: S43.015A Anterior dislocation of left humerus, initial encounter (principal); X58.XXXA Exposure to other specified factors, initial encounter
CPT/HCPCS: 23650; 73020; 73030; 99285; J2704

== ENCOUNTER 2025-06-30 12:48 | Emergency (ER) | payer SELFPAY ==
[2025-06-30 12:58] VITALS: BP 139/91; PULSE 85; RESP 20; TEMP 36.7; O2SAT 98
--- NOTE | 2025-06-30 13:33 | ED_ITS ---
Documented by User: LAUREANO Jackson 06/30/25 13:35 HPI - Dental/Oral General: Chief complaint: Dental/Oral Stated complaint: L side Mouth Swollen painful Time Seen by Provider: 06/30/25 13:03 Source: patient Mode of arrival: ambulatory Limitations: no limitations History of Present Illness: Patient is a 30-year-old male who presents the emergency department with left lower dental pain and swelling for the past few days. Denies history of previous dental abscess, but he states that this is what he thinks he has. He does not see dentist. No fever, trouble swallowing, nausea/vomiting, or other systemic symptoms of illness. States that he does have overall poor dental care. Pain noted to be mild at this time. Vitals are stable. MD Complaint: tooth pain Onset (ago): day(s) Duration: constant Severity: mild Context: history of dental caries and poor dental care Associated symptoms: Denies ear or mastoid pain, fever(s) or odynophagia Treatment prior to arrival: none Related Data Previous Rx's ?Medication ?Instructions ?Recorded amoxicillin 875 mg-potassium 1 tab PO BID 7 days #14 t abs 06/30/25 clavulanate 125 mg tablet Allergies Allergy/AdvReac Type Severity Reaction Status Date / Time No Known Allergies Allergy Verified 06/04/24 12:45 Review of Systems General: Reports: 10 or more systems reviewed and unremarkable except in HPI and below Const: Denies: fever(s), chills or fatigue Eyes: Denies: change in vision ENMT: Reports: mouth pain, dental pain and sinus pain; Denies: throat pain, odynophagia, ear or mastoid pain or nasal discharge Card: Denies: chest pain, palpitations, swelling of feet/ankles or lightheadedness Resp: Denies: dyspnea, productive cough or wheezing GI: Denies: abdominal pain, nausea, vomiting, diarrhea or constipation Musc: Denies: neck pain, back pain or joint pain Skin/Breast: Denies: rash Neuro: Denies: headache(s), numbness in extremities or weakness in extremities PFS ED PFSH: Medical History No pertinent past medical history Social History Substance/Drug Use: unknown Physical Exam Const: COMMON NORMALS: no acute distress and no limitations GENERAL APPEARANCE: cooperative, comfortable and well developed ORIENTATION/CONSCIOUSNESS: Yes awake HENMT: COMMON NORMALS: normocephalic, atraumatic and hearing grossly normal bilaterally HEAD & SCALP: normocephalic and atraumatic OTHER: Overall poor dental care. Multiple caries and restorations. There is a cracked tooth to left lower dentition, however associated gingival edema and tenderness to palpation. No fluctuance. Mild facial swelling and tenderness to palpation within the face. Neck/C-Spine: COMMON NORMALS: full ROM and supple Extremity: COMMON NORMALS: normal to inspection, full ROM and capillary refill normal Skin: COMMON NORMALS: no rashes or lesions noted GENERAL SKIN EXAM: no rashes or lesions noted Course Vital Signs: Vital signs: Vital Signs Temperature 98.0 F 06/30/25 12:58 Pulse Rate 85 06/30/25 12:58 Respiratory Rate 20 H 06/30/25 12:58 Blood Pressure 139/91 06/30/25 12:58 Pulse Oximetry 98 06/30/25 12:58 Oxygen Delivery Me thod Room Air 06/30/25 12:58 MDM - Dental/Oral Medical Decision Making Patient presenting with clinical signs and symptoms of possible dental abscess we will treat empirically with Augmentin. He is also given handout for dental referral as he is instructed to follow-up for further definitive management. Decadron given here in the ED. Overall he is stable for discharge home as he has no signs of impending respiratory compromise or systemic illness. No radiology studies performed this visit Discharge Plan Discharge Patient Disposition: Home Clinical Impression: Dental abscess Condition: Stable Prescriptions: New amoxicillin-pot clavulanate 875-125 mg tablet 1 tab PO BID 7 Days Qty: 14 0RF Discharge Orders: Discharge ED (Routine); Ordered 06/30/25 Ordered By: Basil Figueroa Patient Instructions: Patient Portal & Jd Instructions Activity Restrictions/Additional Instructions: Dental Abscess Discharge You have been diagnosed with a dental abscess (infection) in your lower left jaw. This is a pocket of infection near a tooth, which can cause pain, swelling, and sometimes pus. Treatment Plan: - You have been prescribed amoxicillin-clavulanate (Augmentin) to take twice daily for one week. Take the medication exactly as directed. If you miss a dose, take it as soon as you remember, but do not double up. - If you experience any side effects such as rash, severe diarrhea (three or more loose stools per day), abdominal pain, or fever, stop the medication and contact your healthcare provider immediately. - You will receive a referral handout to see a dentist as soon as possible. Definitive dental treatment (such as drainage or root canal) is needed to fully resolve the infection. Pain Management: - For pain, you may use [id number] ibuprofen (400?600 mg) and acetaminophen (1000 mg) together, as this combination is effective for dental pain. - Avoid chewing on the affected side and stick to soft foods until you see the dentist. What to Watch For: - If you develop increased swelling, difficulty swallowing or breathing, fever, or feel very unwell, seek medical attention immediately. These may be signs that the infection is spreading and needs urgent care. - If your symptoms do not improve within 3 days, or if they worsen, contact your healthcare provider or dentist. - You may stop the antibiotics 24 hours after your symptoms have completely resolved, even if you have not finished the full course, unless otherwise instructed. Follow-Up: - Schedule a dental appointment as soon as possible. Do not delay, as antibiotics alone will not cure the abscess. - Bring this handout and your medication list to your dental visit. General Advice: - Maintain good oral hygiene by gently brushing and rinsing your mouth. - Do not share your antibiotics with anyone. - Drink plenty of fluids and rest. If you have any questions or concerns, contact your healthcare provider or dentist. Print Language: Cook Islander Coding Level of Care Code ED Astronomy Professor for Chg Fwd Documented by User: Nabil Chaparro DO 06/30/25 13:36 HPI - Dental/Oral General: Chief complaint: Dental/Oral Stated complaint: L side Mouth Swollen painful Time Seen by Provider: 06/30/25 13:03 Related Data Previous Rx's ?Medication ?Instructions ?Recorded amoxicillin 875 mg-potassium 1 tab PO BID 7 days #14 t abs 06/30/25 clavulanate 125 mg tablet Allergies Allergy/AdvReac Type Severity Reaction Status Date / Time No Known Allergies Allergy Verified 06/04/24 12:45 [facility] ED PFSH: Medical History No pertinent past medical history Social History Substance/Drug Use: unknown Course Vital Signs: Vital signs: Vital Signs Temperature 98.0 F 06/30/25 12:58 Pulse Rate 85 06/30/25 12:58 Respiratory Rate 20 H 06/30/25 12:58 Blood Pressure 139/91 06/30/25 12:58 Pulse Oximetry 98 06/30/25 12:58 Oxygen Delivery Me thod Room Air 06/30/25 12:58 MDM - Dental/Oral Medical Decision Making Patient presenting with clinical signs and symptoms of possible dental abscess we will treat empirically with Augmentin. He is also given handout for dental referral as he is instructed to follow-up for further definitive management. Decadron given here in the ED. Overall he is stable for discharge home as he has no signs of impending respiratory compromise or systemic illness. Chart reviewed and patient discussed with midlevel. Agree with assessment and plan. Discharge Plan Discharge Patient Disposition: Home Clinical Impression: Dental abscess Condition: Stable Prescriptions: New amoxicillin-pot clavulanate 875-125 mg tablet 1 tab PO BID 7 Days Qty: 14 0RF Discharge Orders: Discharge ED (Routine); Ordered 06/30/25 Ordered By: Basil Figueroa Patient Instructions: Patient Portal & Jd Instructions Activity Restrictions/Additional Instructions: Dental Abscess Discharge You have been diagnosed with a dental abscess (infection) in your lower left jaw. This is a pocket of infection near a tooth, which can cause pain, swelling, and sometimes pus. Treatment Plan: - You have been prescribed amoxicillin-clavulanate (Augmentin) to take twice daily for one week. Take the medication exactly as directed. If you miss a dose, take it as soon as you remember, but do not double up. - If you experience any side effects such as rash, severe diarrhea (three or more loose stools per day), abdominal pain, or fever, stop the medication and contact your healthcare provider immediately. - You will receive a referral handout to see a dentist as soon as possible. Definitive dental treatment (such as drainage or root canal) is needed to fully resolve the infection. Pain Management: - For pain, you may use smoh-gvu-utzibjy ibuprofen (400?600 mg) and acetaminophen (1000 mg) together, as this combination is effective for dental pain. - Avoid chewing on the affected side and stick to soft foods until you see the dentist. What to Watch For: - If you develop increased swelling, difficulty swallowing or breathing, fever, or feel very unwell, seek medical attention immediately. These may be signs that the infection is spreading and needs urgent care. - If your symptoms do not improve within 3 days, or if they worsen, contact your healthcare provider or dentist. - You may stop the antibiotics 24 hours after your symptoms have completely resolved, even if you have not finished the full course, unless otherwise instructed. Follow-Up: - Schedule a dental appointment as soon as possible. Do not delay, as antibiotics alone will not cure the abscess. - Bring this handout and your medication list to your dental visit. General Advice: - Maintain good oral hygiene by gently brushing and rinsing your mouth. - Do not share your antibiotics with anyone. - Drink plenty of fluids and rest. If you have any questions or concerns, contact your healthcare provider or dentist. Print Language: [place]er Coding Level of Care Code ED Astronomy Professor for Martha Hodges
== END 2025-06-30 13:44 | disposition home or self-care (01) ==
PROVIDERS: Emergency Provider Physician Assistant
DX: K04.7 Periapical abscess without sinus (principal)
CPT/HCPCS: 96372; 99284; J1100